=== PATIENT | female | born 2000 | race Caucasian/White ===

== ENCOUNTER 2022-05-06 19:23 | Emergency (ER) | payer BC, OTHER ==
[~2022-05-06] VITALS: Ht 160 cm; Wt 127.0 kg
[2022-05-06] MEDS ORDERED: IBUPROFEN 600 MG (MOTRIN) TAB PO ONE (20:00)
--- NOTE | 2022-05-06 20:32 | ED General ---
General Chief Complaint: Fever-Adult/Adol Stated Complaint: CHEST PAIN - SOA - THROAT SWELLING Nursing Triage Note: PT TO ED W/ C/O DIZZINESS, LIGHTHEADEDNESS, CHILLS, SOB, SORE THROAT ET FEVER ONSET X2 DAYS. Source of Information: Patient Exam Limitations: No Limitations (RADHA BERMUDEZ APRN) History of Present Illness Date Seen by Provider: May 06, 2022 Time Seen by Provider: 19:30 Initial Comments Patient is a 21-year-old female who presents to the emergency department for evaluation of lightheadedness, chills, shortness of breath, sore throat, and fever that began 2 days ago. Patient has not taken anything for the symptoms since a dose of ibuprofen this morning. She states that she feels like she is having trouble swallowing and that her "throat is closing up". She denies any difficulty fully opening her mouth or decreased range of motion of the neck. Denies any change in voice. No known recent sick contacts. (RADHA BERMUDEZ APRN) Allergies and Home Medications Allergies Coded Allergies: No Known Drug Allergies (Unverified , 05/06/22) Patient Home Medication List Home Medication List Reviewed: Yes (RADHA BERMUDEZ APRN) Review of Systems Review of Systems Constitutional: see HPI, fever, malaise EENTM: see HPI, throat pain Respiratory: see HPI, cough Cardiovascular: no symptoms reported Gastrointestinal: no symptoms reported Musculoskeletal: no symptoms reported Skin: no symptoms reported (RADHA BERMUDEZ APRN) Past Xmxvtnl-Mdalmf-[id number] Hx Patient Social History Tobacco Use?: No Use of E-Cig and/or Vaping dev: No Substance use?: No Alcohol Use?: No Pt feels they are or have been: No (RADHA BERMUDEZ APRN) Past Medical History Surgery/Hospitalization HX: MEY RT FOOT RECONSTRUCTION GERD ACNE ANXIETY (RADHA BERMUDEZ APRN) Physical Exam Vital Signs Vital Signs - First Documented 05/06/22 19:26 Temp 39.4 Pulse 154 Resp 20 B/P (MAP) 134/77 (96) Pulse Ox 95 O2 Delivery Room Air (MARINO TENORIO MD) Vital Signs Capillary Refill : Less Than 3 Seconds (RADHA BERUMDEZ APRN) Height, Weight, BMI Height: '" Weight: lbs. oz. kg; 49.00 BMI Method: General Appearance: No Apparent Distress, WD/WN HEENT: TMs Normal, Normal ENT Inspection, Tonsillar Exudate, Tonsillar Enlargement Neck: Full Range of Motion, Normal Inspection, Non Tender, Supple Respiratory: Chest Non Tender, Lungs Clear, Normal Breath Sounds, No Accessory Muscle Use, No Respiratory Distress Cardiovascular: No Murmur, Normal Peripheral Pulses Gastrointestinal: Non Tender, Soft Extremity: Non Tender, No Calf Tenderness Neurologic/Psychiatric: Oriented x3, No Motor/Sensory Deficits, Normal Mood/Affect, message clerk II-XII Norm as Tested Skin: Normal Color, Warm/Dry (RADHA BERMUDEZ APRN) Progress/Results/Core Measures Suspected Sepsis SIRS Temperature: Pulse: 154 Respiratory Rate: 20 Blood Pressure 134 /77 Mean: 96 (RADHA BERMUDEZ APRN) Results/Orders Lab Results Laboratory Tests Test 05/06/22 19:35 05/06/22 19:48 Range/Units Influenza Type A (RT-PCR) Not Detected Not Detecte Influenza Type B (RT-PCR) Not Detected Not Detecte SARS-CoV-2 RNA (RT-PCR) Not Detected Not Detecte Group A Streptococcus Screen NEGATIVE NEGATIVE Urine Test NEGATIVE NEGATIVE (MARINO TENORIO MD) Medications Given in ED Current Medications Medications Dose Ordered Sig/Jose Manuel Route Start Time Stop Time Status Last Admin Dose Admin Ibuprofen 600 mg ONCE ONCE PO 05/06/22 20:00 05/06/22 20:01 DC 05/06/22 19:58 600 MG (MARINO TENORIO MD) Vital Signs/I&O 05/06/22 05/06/22 05/06/22 19:26 20:32 20:50 Temp 39.4 37.1 Pulse 154 114 Resp 20 20 B/P (MAP) 134/77 (96) 131/88 Pulse Ox 95 99 O2 Delivery Room Air Room Air (MARINO TENORIO MD) Vital Signs/I&O Capillary Refill : Less Than 3 Seconds (RADHA BERMUDEZ APRN) Blood Pressure Mean: 96 Progress Note : Progress Note Patient is nontoxic and well-hydrated on exam. Tonsillar swelling and exudate appreciated on exam. Some mild anterior cervical adenopathy also noted. No evidence of PRISON KEEPER deep space infection of the neck. Patient has no trismus and is able to fully range the neck. No muffled voice appreciated. Rapid strep negative. Rapid COVID and flu also negative. Viral etiology of symptoms likely. No obvious nidus of bacterial infection noted on exam. Patient was given a dose of Decadron as she states that her sore throat is very severe. Discussed supportive care and anticipatory guidance. Follow-up with PCP. Return precautions for urgent symptomology discussed. Patient verbalized understanding. (RADHA BERMUDEZ APRN) Departure Impression Primary Impression: Acute viral pharyngitis Additional Impression: Viral syndrome Disposition: HOME, SELF-CARE Condition: Stable Departure-Patient Inst. Decision time for Depature: 20:30 (RADHA BERMUDEZ APRN) Patient Instructions: Sore Throat, Adult ED ATTENDING PHYSICIAN NOTE: I was physically present as attending physician in the emergency department during the care of this patient, but I was not directly involved in the decision making or delivery of care for this patient. (MARINO TENORIO MD) RADHA BERMUDEZ APRN May 06, 2022 20:31 MARINO TENORIO MD May 07, 2022 02:44
[2022-05-06] MEDS ORDERED: dexAMETHasone 6 MG TAB (DECADRON) ONE (20:35)
[2022-05-06] MEDS ORDERED: dexAMETHasone 6 MG TAB (DECADRON) PO SCH (20:45)
[2022-05-06 20:50] VITALS: BP 131/88
== END 2022-05-06 20:50 | disposition home or self-care (01) ==
LOC: ER 19:26
DX: J06.9 Acute upper respiratory infection, unspecified (principal); Z20.822 Contact with and (suspected) exposure to COVID-19
CPT/HCPCS: 84703; 87430; 87636; 99283